=== PATIENT | male | born 1965 | race Two or more races ===

== ENCOUNTER 2022-08-14 19:00 | Emergency (ER) | payer BC ==
[2022-08-14 19:37] VITALS: TEMP 98.2; BMI 25.2
[2022-08-14 19:56] VITALS: RESP 26
[2022-08-14] MEDS ORDERED: SODIUM CHLORIDE 1,000 ML IV STA (20:31)
[2022-08-14 20:41] LABS: HEMATOCRIT 44.1 % (35.4-49); HEMOGLOBIN 14.9 G/dL (11.7-16.9); MCH 31.9 pg (25.7-33.7); MCHC 33.8 g/dl (32.0-35.9); MEAN CELL VOLUME 94.4 fl (80-96); MEAN PLT VOLUME 7.6 fl (7.5-11.1); PLATELET COUNT 204.9 10^3/uL (134-434); RBC 4.67 10^6/uL (4.00-5.60); RDW 13.6 % (11.9-15.9); WHITE BLOOD COUNT 15.9 10^3/uL (4.0-10.8)
[2022-08-14 20:58] LABS: ALBUMIN 3.9 g/dl (3.4-5.0); BILIRUBIN,TOTAL 0.9 mg/dl (0.2-1); CALCIUM 8.5 mg/dl (8.5-10); CREATININE 1.1 mg/dl (0.55-1.3); TOT PROT 6.5 g/dl (6.4-8.2)
[2022-08-14 21:54] VITALS: BP 127/83; PULSE 105
[2022-08-14 22:26] LABS: PLATELET ESTIMATE ADEQUATE
== END 2022-08-14 22:47 | disposition home or self-care (01) ==
LOC: FER 19:00
PROC: 3E0337Z Introduction of Electrolytic and Water Balance Substance into Peripheral Vein, Percutaneous Approach (ICD-10-PCS; principal; 2022-08-14)
DX: B34.9 Viral infection, unspecified (principal)
CPT/HCPCS: 0241U-QW; 36415; 70450-TC; 80053; 81003; 84443; 84484; 85027; 99285-25